=== PATIENT | female | born 1950 | race Two or more races ===

== ENCOUNTER 2020-11-25 09:31 | Outpatient (CLI) | payer OTHER | END 2020-11-25 10:19 | disposition home or self-care (01) | LOC: SONOGRAMA 09:31 | PROVIDERS: ATTEND Pathology Anatomic Pathology & Clinical Pathology | DX: E04.2 Nontoxic multinodular goiter (principal); D34 Benign neoplasm of thyroid gland ==

== ENCOUNTER 2023-11-29 09:03 | Outpatient (CLI) | payer OTHER | END 2023-11-29 09:09 | disposition home or self-care (01) | LOC: SONOGRAMA 09:03 | PROVIDERS: ATTEND Pathology Anatomic Pathology & Clinical Pathology | DX: E06.3 Autoimmune thyroiditis (principal); E04.2 Nontoxic multinodular goiter ==